=== PATIENT | male | born 1935 | race Caucasian/White ===

== ENCOUNTER 2020-04-14 08:16 | Outpatient (CLI) | payer MEDICARE ==
--- NOTE | 2020-04-14 09:19 | BD ---
BONE DENSITOMETRY USING DEXA: Date: 04/14/2020 HISTORY: 84-year-old male with screening for osteoporosis. FINDINGS: Lumbar Spine: BMD (g/cm2) L1 0.965 T-Score: -1.0 Z-Score: 0.2 L2 1.139 T-Score: 0.4 Z-Score: 1.7 L3 1.144 T-Score: 0.4 Z-Score: 1.6 L4 1.074 T-Score: -0.1 Z-Score: 1.1 L1-L4 1.081 T-Score: -0.1 Z-Score: 1.1 Femoral Neck: 0.613 T-Score: -2.3 Z-Score: -0.7 Total Femur: 0.904 T-Score: -0.9 Z-Score: 0.3 The 10 year fracture risk for a major osteoporotic fracture is 10% and for a hip fracture is 4.5%. IMPRESSION: Osteopenia. POS: [facility]
== END 2020-04-14 08:17 | disposition home or self-care (01) ==
LOC: BICMAMMO 08:16
PROVIDERS: ATTEND Specialist
DX: M81.0 Age-related osteoporosis without current pathological fracture (principal); M85.859 Other specified disorders of bone density and structure, unspecified thigh; M85.88 Other specified disorders of bone density and structure, other site
CPT/HCPCS: 77080

== ENCOUNTER 2022-09-21 09:39 | Outpatient (CLI) | payer MEDICARE | END 2022-09-21 09:40 | disposition home or self-care (01) | LOC: BICRAD 09:39 | PROVIDERS: ATTEND Specialist | DX: I10 Essential (primary) hypertension (principal) | CPT/HCPCS: 71046 ==

== ENCOUNTER 2022-09-21 15:03 | Outpatient (CLI) | payer MEDICARE | END 2022-09-21 15:04 | disposition home or self-care (01) | LOC: BICMAMMO 15:03 | PROVIDERS: ATTEND Specialist | DX: M85.851 Other specified disorders of bone density and structure, right thigh (principal); M85.852 Other specified disorders of bone density and structure, left thigh | CPT/HCPCS: 77080 ==